=== PATIENT | male | born 1970 | race Hispanic/Latino ===

== ENCOUNTER 2019-01-22 08:09 | Emergency (ER) | payer BC ==
--- NOTE | 2019-01-22 09:24 | RAD REPORT ---
EXAM DESCRIPTION: RAD - Chest Pa And Lat (2 Views) - 01/22/2019 9:11 am CLINICAL HISTORY: Cough;Fever Chest pain. COMPARISON: No comparisons FINDINGS: Interstitial markings are prominent bilaterally suggesting interstitial pneumonitis/ bronc hitis. No focal infiltrate typical of pneumonia seen. The heart is normal in size. No displaced fract ures.
--- NOTE | 2019-01-22 09:35 | EDPHYS ---
Physician Documentation [facility] Name: Tommy Martinez Age: 48 yrs Sex: Male : 1970 Arrival Date: 01/22/2019 Time: 08:13 Bed 19 Private MD: ED Physician Chencho Cevallos HPI: 01/22 09:34 This 48 yrs old Male presents to ER via Ambulatory with complaints of Fever, pm1 Chills. 09:34 The patient reports fever, not measured (subjective). Onset: The symptoms/episode pm1 began/occurred this morning, at 01:00. Modifying factors: reports onset after getting rained on at work yesterday. Works outdoors. Associated signs and symptoms: Pertinent positives: chills, cough, Pertinent negatives: chest pain, shortness of breath. Severity of symptoms: in the emergency department the symptoms have improved. The patient has experienced similar episodes in the past, a few times. The patient has not recently seen a physician. Historical: - Allergies: 08:23 Tetanus Vaccines \T\ Toxoid; ss - Home Meds: 08:23 None [Active]; ss - PMHx: 08:23 None; ss - PSHx: 08:23 None; ss - Immunization history:: Adult Immunizations up to date. - Social history:: Smoking status: Patient uses tobacco products, smokes one-half pack cigarettes per day. - Ebola Screening: : Patient denies exposure to infectious person Patient denies travel to an Ebola-affected area in the 21 days before illness onset. ROS: 09:34 Eyes: Negative for injury, pain, redness, and discharge, ENT: Negative for injury, pm1 pain, and discharge, Neck: Negative for injury, pain, and swelling, Cardiovascular: Negative for chest pain, palpitations, and edema. 09:34 Abdomen/GI: Negative for abdominal pain, nausea, vomiting, diarrhea, and constipation, Back: Negative for injury and pain, MS/Extremity: Negative for injury and deformity, Skin: Negative for injury, rash, and discoloration, Neuro: Negative for headache, weakness, numbness, tingling, and seizure. 09:34 Constitutional: Positive for body aches, chills, fever. 09:34 Respiratory: Positive for cough, Negative for shortness of breath, sputum production, wheezing. Exam: 09:34 Constitutional: This is a well developed, well nourished patient who is awake, alert, pm1 and in no acute distress. Head/Face: Normocephalic, atraumatic. Eyes: Pupils equal round and reactive to light, extra-ocular motions intact. Lids and lashes normal. Conjunctiva and sclera are non-icteric and not injected. Cornea within normal limits. Periorbital areas with no swelling, redness, or edema. ENT: Nares patent. No nasal discharge, no septal abnormalities noted. Tympanic membranes are normal and external auditory canals are clear. Oropharynx with no redness, swelling, or masses, exudates, or evidence of obstruction, uvula midline. Mucous membranes moist. Neck: Trachea midline, no thyromegaly or masses palpated, and no cervical lymphadenopathy. Supple, full range of motion without nuchal rigidity, or vertebral point tenderness. No Meningismus. Chest/axilla: Normal chest wall appearance and motion. Nontender with no deformity. No lesions are appreciated. Cardiovascular: Regular rate and rhythm with a normal S1 and S2. No gallops, murmurs, or rubs. Normal PMI, no JVD. No pulse deficits. Respiratory: Lungs have equal breath sounds bilaterally, clear to auscultation and percussion. No rales, rhonchi or wheezes noted. No increased work of breathing, no retractions or nasal flaring. Abdomen/GI: Soft, non-tender, with normal bowel sounds. No distension or tympany. No guarding or rebound. No evidence of tenderness throughout. Back: No spinal tenderness. No costovertebral tenderness. Full range of motion. Skin: Warm, dry with normal turgor. Normal color with no rashes, no lesions, and no evidence of cellulitis. MS/ Extremity: Pulses equal, no cyanosis. Neurovascular intact. Full, normal range of motion. 09:34 Neuro: Orientation: is normal, Motor: is normal, moves all fours. Vital Signs: 08:23 BP 137 / 95; Pulse 89; Resp 17; Temp 98.7(TE); Pulse Ox 98% on R/A; Weight 66.22 kg; ss Height 5 ft. 6 in. (167.64 cm); Pain 0/10; 09:30 BP 128 / 87; Pulse 82; Resp 18; Temp 98.0; Pulse Ox 99% on R/A; ph 08:23 Body Mass Index 23.56 (66.22 kg, 167.64 cm) ss MDM: 08:20 Patient medically screened. pm1 09:33 Data reviewed: vital signs. Data interpreted: Pulse oximetry: on room air is 98 %. pm1 Interpretation: normal. Counseling: I had a detailed discussion with the patient and/or guardian regarding: the historical points, exam findings, and any diagnostic results supporting the discharge/admit diagnosis, lab results, radiology results, the need for outpatient follow up, to return to the emergency department if symptoms worsen or persist or if there are any questions or concerns that arise at home. 09:34 ED course: Patient with 37 year history of smoking with fever and chills. Chest x-ray pm1 with possible pneumonitis. therefore with cover with abx. 01/22 08:45 Order name: Flu; Complete Time: 09:33 pm1 01/22 08:45 Order name: Chest Pa And Lat (2 Views) XRAY; Complete Time: 09:33 pm1 Administered Medications: No medications were administered Disposition: 01/23 05:43 Co-signature as Attending Physician, Chencho Cevallos MD I agree with the assessment and [facility] plan of care. Disposition: 01/22/19 09:34 Discharged to Home. Impression: Cough. - Condition is Stable. - Discharge Instructions: Steps to Quit Smoking, Smoking Hazards, Cough, Adult. - Prescriptions for Zithromax Z- Darshan 250 mg Oral Tablet - take 1 tablet by ORAL route as directed for 5 days Day 1 - take two (2) tablets one time. Day 2, 3, 4 , 5 take one (1) tablet once daily.; 6 tablet. Guaifenesin AC 10- 100 mg/5 mL Oral Liquid - take 10 milliliter by ORAL route every 4 hours As needed; 240 milliliter. - Work release form, Family Work Release, Medication Reconciliation Form, Thank You Letter, Antibiotic Education, Prescription Opioid Use form. - Follow up: Emergency Department; When: As needed; Reason: Worsening of condition. Follow up: Private Physician; When: 2 - 3 days; Reason: Recheck today's complaints, Continuance of care, Re-evaluation by your physician. - Problem is new. - Symptoms have improved. Signatures: Dispatcher [employer] Chencho Guevara MD MD cha Smirch, Shelby, RN RN ss Christine Billy RN RN ph Paul Segundo, PATRICIA PATIENT LIAISON pm1 Corrections: (The following items were deleted from the chart) 01/22 10:01 09:34 01/22/2019 09:34 Discharged to Home. Impression: Cough. Condition is Stable. ph Forms are Medication Reconciliation Form, Thank You Letter, Antibiotic Education, Prescription Opioid Use. Follow up: Emergency Department; When: As needed; Reason: Worsening of condition. Follow up: Private Physician; When: 2 - 3 days; Reason: Recheck today's complaints, Continuance of care, Re-evaluation by your physician. Problem is new. Symptoms have improved. pm1
--- NOTE | 2019-01-22 09:35 | ER ---
Nurse's Notes [facility] Name: Tommy Martinez Age: 48 yrs Sex: Male : 1970 Arrival Date: 01/22/2019 Time: 08:13 Bed 19 Private MD: Diagnosis: Cough Presentation: 01/22 08:21 Presenting complaint: Patient states: fever, chills and subjective fever that began ss yesterday. Patient believes it was because he was working out in the rain yesterday. Transition of care: patient was not received from another setting of care. Onset of symptoms was January 21, 2019. Risk Assessment: Do you want to hurt yourself or someone else? Patient reports no desire to harm self or others. Initial Sepsis Screen: Does the patient meet any 2 criteria? No. Patient's initial sepsis screen is negative. Does the patient have a suspected source of infection? No. Patient's initial sepsis screen is negative. Care prior to arrival: None. 08:21 Method Of Arrival: Ambulatory ss 08:21 Acuity: RADHA 4 ss Historical: - Allergies: 08:23 Tetanus Vaccines \T\ Toxoid; ss - Home Meds: 08:23 None [Active]; ss - PMHx: 08:23 None; ss - PSHx: 08:23 None; ss - Immunization history:: Adult Immunizations up to date. - Social history:: Smoking status: Patient uses tobacco products, smokes one-half pack cigarettes per day. - Ebola Screening: : Patient denies exposure to infectious person Patient denies travel to an Ebola-affected area in the 21 days before illness onset. Screenin:47 Abuse screen: Denies threats or abuse. Denies injuries from another. Nutritional ph screening: No deficits noted. Tuberculosis screening: No symptoms or risk factors identified. Fall Risk None identified. Assessment: 09:30 General: Appears in no apparent distress. comfortable, well groomed, Behavior is calm, ph cooperative, appropriate for age, Reports chills for fever for 12-24 hours. Pain: Denies pain. Neuro: Level of Consciousness is awake, alert, obeys commands, Oriented to person, place, time, situation. Cardiovascular: Capillary refill < 3 seconds Patient's skin is warm and dry. Respiratory: Airway is patent Respiratory effort is even, unlabored, Respiratory pattern is regular, symmetrical. Respiratory: Reports cough that is Denies shortness of breath pain with respiration. Derm: Skin is intact, is healthy with good turgor, Skin is pink, warm \T\ dry. Musculoskeletal: Circulation, motion, and sensation intact. Range of motion: intact in all extremities. Vital Signs: 08:23 BP 137 / 95; Pulse 89; Resp 17; Temp 98.7(TE); Pulse Ox 98% on R/A; Weight 66.22 kg; Height 5 ft. 6 in. (167.64 cm); Pain 0/10; 09:30 BP 128 / 87; Pulse 82; Resp 18; Temp 98.0; Pulse Ox 99% on R/A; ph 08:23 Body Mass Index 23.56 (66.22 kg, 167.64 cm) ED Course: 08:13 Patient arrived in ED. mr 08:20 Christine Billy RN is Primary Nurse. ph 08:20 Paul Segundo NP is PHCP. pm1 08:20 Chencho Cevallos MD is Attending Physician. pm1 08:22 Triage completed. 08:23 Arm band placed on right wrist. 09:04 Chest Pa And Lat (2 Views) XRAY In Process Unspecified. EDMS 09:48 Patient has correct armband on for positive identification. Bed in low position. Call ph light in reach. Side rails up X 1. Pulse ox on. NIBP on. 10:00 No provider procedures requiring assistance completed. Patient did not have IV access ph during this emergency room visit. Administered Medications: No medications were administered Outcome: 09:34 Discharge ordered by . pm1 10:00 Discharged to home ambulatory, with family. ph 10:00 Condition: good 10:00 Discharge instructions given to patient, family, Instructed on discharge instructions, follow up and referral plans. medication usage, Demonstrated understanding of instructions, follow-up care, medications, Prescriptions given X 2. 10:01 Patient left the ED. ph Signatures: Dispatcher [employer] SANGRakel DelgadoRadha, RN RN Christine Billy RN RN Paul Segundo, PATRICIA SUPERINTENDENT POLICE pm1
[2019-01-22 10:11] VITALS: BP 137/95; TEMP 98.7; O2SAT 98
== END 2019-01-22 10:01 | disposition home or self-care (01) ==
LOC: ER 08:09
DX: R05 Cough (principal); F17.210 Nicotine dependence, cigarettes, uncomplicated; Z88.7 Allergy status to serum and vaccine
CPT/HCPCS: 71046; 87804; 99283